=== PATIENT | male | born 1960 | race Caucasian/White ===

== ENCOUNTER 2019-03-30 19:18 | Emergency (ER) | payer MEDICAID, OTHER ==
--- NOTE | 2019-03-30 20:01 | ED Physician Chart ---
ED Chief Complaint/HPI - Patient Information Date Seen:: 03/30/19 Time Seen:: 19:50 Chief Complaint:: low back pain History of Present Illness:: At [age] at work patient was putting stock and he twisted slightly and developed low back pain. Legs were weak. No bladder problems. No history of equally severe back pain. Prior histories of back pain have been mild. Allergies:: Allergies Allergy/AdvReac Type Severity Reaction Status Date / Time No Known Allergies Allergy Verified 03/30/19 19:44 Vitals:: Vital Signs - 8 hr 03/30/19 19:25 Temp 98.1 F HR 76 RR 18 BP 166/111 O2 Sat % 98 Historian:: Patient Review:: Nurse's Note Reviewed ED Review of Systems - Review of Systems General/Constitutional: No fever, No chills, No weight loss, No weakness, No diaphoresis, No edema, No loss of appetite Skin: No skin lesions, No rash, No bruising Head: No headache, No light-headedness Eyes: No loss of vision, No pain, No diplopia ENT: No earache, No nasal drainage, No sore throat, No tinnitus Neck: No neck pain, No swelling, No thyromegaly, No stiffness, No mass noted Cardio Vascular: No chest pain, No palpitations, No PND, No orthopnea, No edema Pulmonary: No SOB, No cough, No sputum, No wheezing GI: No nausea, No vomiting, No diarrhea, No pain, No melena, No hematochezia, No constipation, No hematemesis G/U: No dysuria, No frequency, No hematuria Musculoskeletal: Bone or joint pain, Back pain, No muscle pain Endocrine: No polyuria, No polydipsia Psychiatric: No prior psych history, No depression, No anxiety, No suicidal ideation Hematopoietic: No bruising, No lymphadenopathy Allergic/Immuno: No urticaria, No angioedema Neurological: No syncope, No focal symptoms, No weakness, No paresthesia, No headache, No seizure, No dizziness, No confusion, No vertigo ED Past Medical History - Past Medical History Past Medical History: No significant medical hx Family History: None Social History: Smoker, Employed, Other (5-6 cigarettes a day) Surgical History: other (left patella for fracture) Psychiatricy History: None Family Medical History - Family Member Mother History Unknown: Yes ED Physical Exam - Physical Examination General/Constitutional: Awake, Well-developed, well-nourished, Alert, No distress, GCS 15, Non-toxic appearing, Ambulatory Head: Atraumatic Eyes: Lids, conjuctiva normal, PERRL Skin: Nl inspection, No rash, No skin lesions, No ecchymosis ENMT: External ears, nose nl, Lips, teeth, gums nl, Oropharynx nl, Tonsils nl Neck: No nuchal rigidity Respiratory: Nl effort/Exclusion, Clear to Auscultation Cardio Vascular: RRR, No murmur, gallop, rubs, NL S1 S2 GI: No tenderness/rebounding/guarding, No organomegaly, No hernia, Normal BS's : No CVA tenderness Extremities: No tenderness or effusion Neuro/Psych: No focal deficits Other Neuro/Psych comments:: Straight leg raising of 90 bilaterally; deep tendon reflexes knees and ankles 2 out of 4 Misc: No paraspinal tenderness ED Labs/Radiology/EKG Results - Radiology Results Results: Lumbar sacral x-ray showed minimal arthritis; otherwise normal ED Assessment - Assessment General Assessment: Patient may return to work in 4 days with light duty ED Septic Shock - . Is Septic Shock (SBP<90, OR Lactate>4 mmol\L) present?: No - <6hrs of presentation: Vital Signs: Vital Signs - 8 hr 03/30/19 19:25 Temp 98.1 F HR 76 RR 18 BP 166/111 O2 Sat % 98 ED Reassessment (Disposition) - Reassessment Reassessment Condition:: Unchanged - Diagnosis Diagnosis:: Lumbar sacral strain - Aftercare/Follow up Instructions Medication Prescribed:: Flexeril 10 mg #20 to take 1 3 times a day. Suggested taking 2 over-the- counter ibuprofen 3-4 times per day for pain. - Patient Disposition Discharge/Transfer:: Home Condition at Disposition:: Stable, Unchanged
--- NOTE | 2019-03-31 08:17 | Diagnostic Imaging Report ---
Exam: Lumbar sacral spine. HISTORY: Pain. Findings: Multiple views of the lumbar sacral spine reviewed. The study demonstrates vertebral bodies of normal height with preserved intervertebral disc spaces. There is no evidence of spondylolysis or spondylolisthesis. The pedicles are normal. The posterior elements are intact. IMPRESSION: Normal examination lumbar sacral spine.
== END 2019-03-30 21:16 | disposition home or self-care (01) ==
LOC: ER 19:18
DX: S39.012A Strain of muscle, fascia and tendon of lower back, initial encounter (principal); F17.210 Nicotine dependence, cigarettes, uncomplicated; X50.1XXA Overexertion from prolonged static or awkward postures, initial encounter; Y93.89 Activity, other specified; Y92.89 Other specified places as the place of occurrence of the external cause; Y99.8 Other external cause status
CPT/HCPCS: 99283; 96372; 72100; J1885; Z7502